=== PATIENT | female | born 1970 | race Caucasian/White ===

== ENCOUNTER 2020-06-24 15:07 | Emergency (ER) | payer OTHER ==
[~2020-06-24 15:07] MED LIST: CERTAGEN1 EACH PO; CLARITIN10 M2 PO; FERROUS SULFAT325 M2 PO; FLONASE ALLER15.8 ML; FOLIC ACID1 M1 PO; LIPITOR40 MG PO; PROBIOTIC1 EAC1 PO; PROZAC20 MG PO; VITAMIN D5000 UNI1 PO
[2020-06-24 17:39] LABS: BASOPHIL 0.4 % (0-2); EOSINOPHIL 11.1 % (0-5); HCT 39.4 % (37.0-47.0); HGB 12.5 g/dl (12.5-16.0); LYMPHOCYTE 19.1 % (15-48); MCH 30.3 pg (25.0-31.0); MCHC 31.7 g/dL (32.0-36.0); MCV 95.6 fL (78.0-100.0); MONOCYTE 4.8 % (0-12); MPV 10.3 fL (6.0-9.5); NRBC 0; PLT 623 K/uL (150-400); RBC 4.12 M/uL (4.20-5.40); RDW 14.7 % (11.5-14.0); WBC 17.2 K/uL (4.0-10.5)
[2020-06-24 17:56] LABS: ALBUMIN 2.8 g/dL (3.4-5.0); BILIRUBIN - TOTAL 0.3 mg/dL (0.2-1.0); BUN/CREAT RATIO (CALC) 12.7 RATIO; CREATININE 0.79 mg/dL (0.51-0.95); GLOBULIN (CALCULATION) 3.6 g/dL; POTASSIUM 3.8 mmol/L (3.5-5.1); TOTAL PROTEIN 6.4 g/dL (6.4-8.2)
== END 2020-06-24 19:16 | disposition home or self-care (01) ==
LOC: FER 15:07
PROVIDERS: Emergency Medicine
DX: G89.18 Other acute postprocedural pain (principal); R07.89 Other chest pain; L76.34 Postprocedural seroma of skin and subcutaneous tissue following other procedure; J90 Pleural effusion, not elsewhere classified; R00.0 Tachycardia, unspecified; I48.91 Unspecified atrial fibrillation; E11.9 Type 2 diabetes mellitus without complications; E78.5 Hyperlipidemia, unspecified; Z85.118 Personal history of other malignant neoplasm of bronchus and lung; Z98.1 Arthrodesis status; Z90.2 Acquired absence of lung [part of]; Z88.0 Allergy status to penicillin; Z88.1 Allergy status to other antibiotic agents; Z79.899 Other long term (current) drug therapy; Z79.84 Long term (current) use of oral hypoglycemic drugs; Y83.6 Removal of other organ (partial) (total) as the cause of abnormal reaction of the patient, or of later complication, without mention of misadventure at the time of the procedure
CPT/HCPCS: 36415; 71046; 80053; 84484; 85025; 93005; J1885

== ENCOUNTER → 2021-05-20 | Day surgery (SDC) | payer OTHER ==
[~2021-05-20] VITALS: Ht 162.6 cm; Wt 105.0 kg
[~2021-05-20] MED LIST changes: +BUSPAR5 MG PO; +METFORMIN HCL500 MG PO; +OLODATEROL INH; +PERCOCET 5-3251 EACH PO; +PRAVACHOL20 MG PO; +TIOTROPIUM INH
== END | disposition home or self-care (01) ==
LOC: FAS 05-18 11:45
DX: C34.91 Malignant neoplasm of unspecified part of right bronchus or lung (principal); J44.9 Chronic obstructive pulmonary disease, unspecified; E78.00 Pure hypercholesterolemia, unspecified; C77.1 Secondary and unspecified malignant neoplasm of intrathoracic lymph nodes; Z88.1 Allergy status to other antibiotic agents; Z88.0 Allergy status to penicillin; Z79.84 Long term (current) use of oral hypoglycemic drugs; Z98.51 Tubal ligation status; Z87.19 Personal history of other diseases of the digestive system; Z87.891 Personal history of nicotine dependence
CPT/HCPCS: 71045; 76000; C1788; J1644; J2250; J2405; J2704; J3010; J7030; J7120

== ENCOUNTER 2021-07-13 10:06 | Emergency (ER) | payer OTHER ==
[2021-07-13 12:11] LABS: BASOPHIL 0.5 % (0-2); EOSINOPHIL 2.5 % (0-5); HCT 38.6 % (37.0-47.0); HGB 12.7 g/dl (12.5-16.0); LYMPHOCYTE 18.6 % (15-48); MCH 30.5 pg (25.0-31.0); MCHC 32.9 g/dL (32.0-36.0); MCV 92.8 fL (78.0-100.0); MONOCYTE 4.2 % (0-12); MPV 9.2 fL (6.0-9.5); NEUTROPHIL 73.4 % (41-80); NRBC 0; PLT 161 K/uL (150-400); RBC 4.16 M/uL (4.20-5.40); RDW 16.5 % (11.5-14.0)
[2021-07-13 12:45] LABS: ALBUMIN 3.1 g/dL (3.4-5.0); BILIRUBIN - TOTAL 0.4 mg/dL (0.2-1.0); BUN/CREAT RATIO (CALC) 11.4 RATIO; CREATININE 0.7 mg/dL (0.51-0.95); GLOBULIN (CALCULATION) 3.4 g/dL; POTASSIUM 4.2 mmol/L (3.5-5.1); TOTAL PROTEIN 6.5 g/dL (6.4-8.2)
[2021-07-13] MEDS ORDERED: NORCO 5-325 TA1 EACH PO (14:19)
[2021-07-13] MEDS ORDERED: VIBRAMYCIN100 MG PO (14:19)
[2021-07-13] MEDS ORDERED: PREDNISONE20 MG PO (14:19)
== END 2021-07-13 15:03 | disposition home or self-care (01) ==
LOC: FER 10:06
PROVIDERS: Emergency Medicine
DX: J44.1 Chronic obstructive pulmonary disease with (acute) exacerbation (principal); J70.0 Acute pulmonary manifestations due to radiation; Z88.0 Allergy status to penicillin; Z88.1 Allergy status to other antibiotic agents; Z20.822 Contact with and (suspected) exposure to COVID-19
CPT/HCPCS: 36415; 71250; 80053; 85025; 94640; 94664; J1170; J2405; J2930; U0002

== ENCOUNTER 2021-07-31 11:19 | Inpatient (IN) | payer OTHER ==
[~2021-07-31] VITALS: Ht 162.6 cm; Wt 102.2 kg
[~2021-07-31 11:19] MED LIST changes: +NORCO 5-325 TA1 EACH PO; +PREDNISONE20 MG PO; +VIBRAMYCIN100 MG PO
[2021-07-31 12:12] LABS: BASOPHIL 0.4 % (0-2); HCT 37.3 % (37.0-47.0); HGB 12.5 g/dl (12.5-16.0); LYMPHOCYTE 14.9 % (15-48); MCH 31.1 pg (25.0-31.0); MCHC 33.5 g/dL (32.0-36.0); MCV 92.8 fL (78.0-100.0); MONOCYTE 11.7 % (0-12); MPV 9.5 fL (6.0-9.5); NEUTROPHIL 71.6 % (41-80); NRBC 0; PLT 304 K/uL (150-400); RBC 4.02 M/uL (4.20-5.40); RDW 18.6 % (11.5-14.0); WBC 4.9 K/uL (4.0-10.5)
[2021-07-31 12:33] LABS: LACTIC ACID 1.2 mmol/L (0.4-1.9)
[2021-07-31 12:39] LABS: ALBUMIN 3.3 g/dL (3.4-5.0); BILIRUBIN - TOTAL 0.5 mg/dL (0.2-1.0); CREATININE 0.69 mg/dL (0.51-0.95); GLOBULIN (CALCULATION) 3.8 g/dL; MAGNESIUM 1.7 mg/dL (1.8-2.4); POTASSIUM 3.7 mmol/L (3.5-5.1); TOTAL PROTEIN 7.1 g/dL (6.4-8.2)
[2021-07-31 13:07] LABS: CORONAVIRUS 2019 SARS-COV-2 NEGATIVE (NEGATIVE); INFLUENZA A NAA NEGATIVE (NEGATIVE)
[2021-07-31] MEDS ORDERED: PRILOSEC20 MG PO (16:47)
[2021-07-31] MEDS ORDERED: ZPAK PO (16:47)
[2021-07-31] MEDS ORDERED: VENTOLIN (2.5 MG/3 M INH (16:48)
[2021-07-31 18:54] LABS: BILIRUBIN NEGATIVE (NEGATIVE); BLOOD NEGATIVE Ery/uL (NEGATIVE); CLARITY CLEAR (CLEAR); COLOR YELLOW (YELLOW); GLUCOSE (U) NORMAL (NORMAL); LEUKOCYTES NEGATIVE Leu/uL (NEGATIVE); NITRITE NEGATIVE (NEGATIVE); PROTEIN NEGATIVE (NEGATIVE); UROBILINOGEN 0.2 mg/dL (0.2-1.0)
[2021-08-01 06:23] LABS: BASOPHIL 0.3 % (0-2); HCT 32.2 % (37.0-47.0); HGB 10.4 g/dl (12.5-16.0); LYMPHOCYTE 27.3 % (15-48); MCHC 32.3 g/dL (32.0-36.0); MCV 95.8 fL (78.0-100.0); MONOCYTE 12.8 % (0-12); MPV 9.3 fL (6.0-9.5); NEUTROPHIL 55.9 % (41-80); NRBC 0; PLT 275 K/uL (150-400); RBC 3.36 M/uL (4.20-5.40)
[2021-08-01 06:43] LABS: BUN/CREAT RATIO (CALC) 11.7 RATIO; CREATININE 0.6 mg/dL (0.51-0.95); POTASSIUM 3.5 mmol/L (3.5-5.1)
[2021-08-01] MEDS ORDERED: VENTOLIN HFA IN18 GM INH (12:53)
[2021-08-01] MEDS ORDERED: VIBRAMYCIN100 MG PO (12:53)
[2021-08-01] MEDS ORDERED: LOVENOX100 MG/1 M SC (12:55)
[2021-08-01] MEDS ORDERED: ELIQUIS5 MG PO (12:55)
[2021-08-01] MEDS ORDERED: DIFLUCAN 100MG100 MG PO (14:03)
== END 2021-08-01 14:00 | disposition home or self-care (01) | DRG 314 ==
LOC: FER 11:19 → FMS 14:08
PROVIDERS: Emergency Medicine; ADMIT Internal Medicine
DX: T82.868A Thrombosis due to vascular prosthetic devices, implants and grafts, initial encounter (principal); I26.99 Other pulmonary embolism without acute cor pulmonale; J18.9 Pneumonia, unspecified organism; I82.C11 Acute embolism and thrombosis of right internal jugular vein; I82.210 Acute embolism and thrombosis of superior vena cava; C34.11 Malignant neoplasm of upper lobe, right bronchus or lung; Z20.822 Contact with and (suspected) exposure to COVID-19; F32.A Depression, unspecified; E66.9 Obesity, unspecified; E55.9 Vitamin D deficiency, unspecified; M19.90 Unspecified osteoarthritis, unspecified site; Z68.38 Body mass index [BMI] 38.0-38.9, adult; Z90.49 Acquired absence of other specified parts of digestive tract; Z90.710 Acquired absence of both cervix and uterus; Z90.2 Acquired absence of lung [part of]; Z98.84 Bariatric surgery status; Z87.891 Personal history of nicotine dependence; Z88.0 Allergy status to penicillin; Z88.1 Allergy status to other antibiotic agents; Z82.49 Family history of ischemic heart disease and other diseases of the circulatory system; Z92.3 Personal history of irradiation; Z92.21 Personal history of antineoplastic chemotherapy
CPT/HCPCS: 36415; 71045; 71275; 80048; 80053; 81003; 83605; 83735; 83880; 84145; 84484; 85025; 85379; 85730; 87040; 87880; 93005; 94640; J1644; J1650; J3370; J3490; J7030; J7050; Q9967; U0002

== ENCOUNTER → 2021-08-07 | Day surgery (SDC) | payer OTHER ==
[~2021-08-07] VITALS: Ht 162.6 cm; Wt 102.1 kg
[~2021-08-07] MED LIST changes: +DIFLUCAN 100MG100 MG PO; +ELIQUIS5 MG PO; +LOVENOX100 MG/1 M SC; +OXYGEN; +PRILOSEC20 MG PO; +VENTOLIN (2.5 MG/3 M INH; +VENTOLIN HFA IN18 GM INH; +ZPAK PO
== END | disposition home or self-care (01) ==
LOC: FER 10:41 → FAS 13:19
DX: T82.868A Thrombosis due to vascular prosthetic devices, implants and grafts, initial encounter (principal); Y82.8 Other medical devices associated with adverse incidents; Y83.8 Other surgical procedures as the cause of abnormal reaction of the patient, or of later complication, without mention of misadventure at the time of the procedure; Z85.118 Personal history of other malignant neoplasm of bronchus and lung; Z90.710 Acquired absence of both cervix and uterus; Z90.49 Acquired absence of other specified parts of digestive tract; Z90.3 Acquired absence of stomach [part of]; Z87.891 Personal history of nicotine dependence; Z88.1 Allergy status to other antibiotic agents; Z88.0 Allergy status to penicillin; Z20.822 Contact with and (suspected) exposure to COVID-19
CPT/HCPCS: 99284; U0002

== ENCOUNTER 2021-12-29 16:29 | Emergency (ER) | payer OTHER ==
[2021-12-29 17:28] LABS: BASOPHIL 0.2 % (0-2); EOSINOPHIL 2.2 % (0-5); HCT 42.9 % (37.0-47.0); HGB 13.9 g/dl (12.5-16.0); LYMPHOCYTE 11.4 % (15-48); MCH 29.1 pg (25.0-31.0); MCHC 32.4 g/dL (32.0-36.0); MCV 89.7 fL (78.0-100.0); MONOCYTE 7.1 % (0-12); MPV 9.6 fL (6.0-9.5); NEUTROPHIL 78.6 % (41-80); NRBC 0; PLT 441 K/uL (150-400); RBC 4.78 M/uL (4.20-5.40); RDW 13.6 % (11.5-14.0); WBC 9.9 K/uL (4.0-10.5)
[2021-12-29 17:41] LABS: INR 1.19 (0.9-1.2); PROTHROMBIN TIME 14.7 SECONDS (11.9-13.9); PTT 29.3 SECONDS (24.9-34.6)
[2021-12-29 17:54] LABS: ALBUMIN 3.1 g/dL (3.4-5.0); BILIRUBIN - TOTAL 0.3 mg/dL (0.2-1.0); BUN/CREAT RATIO (CALC) 3.5 RATIO; CREATININE 0.85 mg/dL (0.51-0.95); GLOBULIN (CALCULATION) 3.7 g/dL; POTASSIUM 3.6 mmol/L (3.5-5.1); TOTAL PROTEIN 6.8 g/dL (6.4-8.2)
[2021-12-29 18:05] LABS: CORONAVIRUS 2019 SARS-COV-2 NEGATIVE (NEGATIVE); INFLUENZA A NAA NEGATIVE (NEGATIVE)
[2021-12-29] MEDS ORDERED: METRONIDAZOLE500 MG PO (19:14)
[2021-12-29] MEDS ORDERED: PERCOCET 5-3251 EACH PO (19:14)
[2021-12-29] MEDS ORDERED: ONDANSETRON ODT4 MG PO (19:14)
[2021-12-29] MEDS ORDERED: DIFLUCAN150 MG PO (19:18)
[2021-12-29] MEDS ORDERED: DIFLUCAN 100MG100 MG PO (21:52)
== END 2021-12-29 22:07 | disposition home or self-care (01) ==
LOC: FER 16:29
PROVIDERS: Internal Medicine
DX: K52.9 Noninfective gastroenteritis and colitis, unspecified (principal); Z88.1 Allergy status to other antibiotic agents; Z88.0 Allergy status to penicillin; Z20.822 Contact with and (suspected) exposure to COVID-19
CPT/HCPCS: 36415; 80053; 83605; 83690; 84145; 85025; 85610; 85730; J1170; J1885; J2405; J7030; J7120; U0002

== ENCOUNTER 2022-01-03 09:53 | Inpatient (IN) | payer OTHER ==
[~2022-01-03] VITALS: Ht 163 cm; Wt 102.1 kg
[~2022-01-03 09:53] MED LIST changes: +DIFLUCAN150 MG PO; +METRONIDAZOLE500 MG PO; +ONDANSETRON ODT4 MG PO
[2022-01-03 11:21] LABS: BASOPHIL 0.1 % (0-2); EOSINOPHIL 1.3 & (0-5); HCT 43.8 % (37.0-47.0); HGB 14.3 g/dl (12.5-16.0); LYMPHOCYTE 11.6 % (15-48); MCH 28.8 pg (25.0-31.0); MCHC 32.6 g/dL (32.0-36.0); MCV 88.1 fL (78.0-100.0); MONOCYTE 7.2 % (0-12); MPV 9.9 fL (6.0-9.5); NEUTROPHIL 79.4 % (41-80); PLT 526 K/uL (150-400); RBC 4.97 M/uL (4.20-5.40); WBC 11.46 K/uL (4.0-10.5)
[2022-01-03 11:24] LABS: INR 1.12 (0.9-1.2); PROTHROMBIN TIME 14.1 SECONDS (11.9-13.9); PTT 29.5 SECONDS (24.9-34.6)
[2022-01-03 11:33] LABS: ALBUMIN 3.2 g/dL (3.4-5.0); BILIRUBIN - TOTAL 0.3 mg/dL (0.2-1.0); BUN/CREAT RATIO (CALC) 6.5 RATIO; CREATININE 0.77 mg/dL (0.51-0.95); GLOBULIN (CALCULATION) 3.1 g/dL; POTASSIUM 3.8 mmol/L (3.5-5.1); TOTAL PROTEIN 6.3 g/dL (6.4-8.2)
[2022-01-03 11:49] LABS: CORONAVIRUS 2019 SARS-COV-2 NEGATIVE (NEGATIVE); INFLUENZA A NAA NEGATIVE (NEGATIVE)
[2022-01-05 06:05] LABS: BASOPHIL 0.2 % (0-2); EOSINOPHIL 0.1 % (0-5); HCT 35.5 % (37.0-47.0); HGB 11.2 g/dl (12.5-16.0); LYMPHOCYTE 16.3 % (15-48); MCH 28.9 pg (25.0-31.0); MCHC 31.5 g/dL (32.0-36.0); MCV 91.5 fL (78.0-100.0); MONOCYTE 12.2 % (0-12); MPV 9.9 fL (6.0-9.5); NEUTROPHIL 70.7 % (41-80); NRBC 0; PLT 424 K/uL (150-400); RBC 3.88 M/uL (4.20-5.40); RDW 14.5 % (11.5-14.0); WBC 8.2 K/uL (4.0-10.5)
[2022-01-05 06:39] LABS: BUN/CREAT RATIO (CALC) 6.5 RATIO; CREATININE 0.77 mg/dL (0.51-0.95); POTASSIUM 3.9 mmol/L (3.5-5.1)
[2022-01-06 07:12] LABS: HCT 35.7 % (37.0-47.0); HGB 11.3 g/dl (12.5-16.0); MCH 29.2 pg (25.0-31.0); MCHC 31.7 g/dL (32.0-36.0); MCV 92.2 fL (78.0-100.0); MPV 10.5 fL (6.0-9.5); RBC 3.87 M/uL (4.20-5.40); RDW 14.5 % (11.5-14.0); WBC 7.6 K/uL (4.0-10.5)
[2022-01-06 07:20] LABS: CREATININE 0.9 mg/dL (0.51-0.95); MAGNESIUM 1.6 mg/dL (1.8-2.4); POTASSIUM 3.9 mmol/L (3.5-5.1)
[2022-01-06 09:10] LABS: ADENOVIRUS F 40/41 Not Detected (Not Detected); ASTROVIRUS Not Detected (Not Detected); C DIFFICILE TOXIN A/B Not Detected (Not Detected); CAMPYLOBACTER Not Detected (Not Detected); CRYPTOSPORIDIUM Not Detected (Not Detected); CYCLOSPORA CAYETANENSIS Not Detected (Not Detected); ENTAMOEBA HISTOLYTICA Not Detected (Not Detected); ENTEROAGGREGATIVE E COLI Not Detected (Not Detected); ENTEROPATHOGENIC E COLI Not Detected (Not Detected); ENTEROTOXIGENIC E COLI Not Detected (Not Detected); GIARDIA LAMBLIA Not Detected (Not Detected); NOROVIRUS GI/GII Not Detected (Not Detected); PLESIOMONAS SHIGELLOIDES Not Detected (Not Detected); ROTAVIRUS A Not Detected (Not Detected); SALMONELLA Not Detected (Not Detected); SAPOVIRUS Not Detected (Not Detected); SHIGA-TOXIN-PRODUCING E COLI Not Detected (Not Detected); SHIGELLA/ENTEROINVASIVE E COLI Not Detected (Not Detected); VIBRIO Not Detected (Not Detected); VIBRIO CHOLERAE Not Detected (Not Detected); YERSINIA ENTEROCOLITICA Not Detected (Not Detected)
[2022-01-07] MEDS ORDERED: PREDNISONE 10MG10 MG PO (09:51)
[2022-01-07] MEDS ORDERED: PANTOPRAZOLE SO40 MG PO (09:51)
== END 2022-01-07 10:40 | disposition home or self-care (01) | DRG 394 ==
LOC: FER 09:53 → FMS 13:23
PROVIDERS: Internal Medicine; ADMIT Internal Medicine
DX: K52.1 Toxic gastroenteritis and colitis (principal); C34.90 Malignant neoplasm of unspecified part of unspecified bronchus or lung; K51.00 Ulcerative (chronic) pancolitis without complications; T38.7X5A Adverse effect of androgens and anabolic congeners, initial encounter; F41.9 Anxiety disorder, unspecified; Z86.711 Personal history of pulmonary embolism; Z86.718 Personal history of other venous thrombosis and embolism; Z79.01 Long term (current) use of anticoagulants; Z20.822 Contact with and (suspected) exposure to COVID-19; F32.A Depression, unspecified; E66.9 Obesity, unspecified; D63.0 Anemia in neoplastic disease; Z68.38 Body mass index [BMI] 38.0-38.9, adult; Z90.49 Acquired absence of other specified parts of digestive tract; Z90.2 Acquired absence of lung [part of]; Z87.891 Personal history of nicotine dependence; Z79.899 Other long term (current) drug therapy; Z88.0 Allergy status to penicillin; Z88.8 Allergy status to other drugs, medicaments and biological substances; Z88.5 Allergy status to narcotic agent; Z28.310 Unvaccinated for COVID-19
CPT/HCPCS: 36415; 80048; 80053; 83605; 83690; 83735; 84145; 85025; 85610; 85730; 87449; J0500; J0780; J1170; J1745; J1885; J2405; J2930; J3475; J7030; J7050; J7512; Q9967; U0002